=== PATIENT | male | born 2005 | race Caucasian/White ===

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

== ENCOUNTER 2024-07-04 09:01 | Emergency (ER) | payer BC, SELFPAY ==
--- NOTE | ~2024-07-04 | XR_ITS ---
XR chest 2V Ordering provider: Adelso Chapin MD History: 19 years Male with . chest pain . Comparison: None. FINDINGS: MEDIASTINUM: The cardiac silhouette is not enlarged. LUNGS: No infiltrates, effusions or pneumothorax. OTHER: No free air under the diaphragm. IMPRESSION: No Acute cardiopulmonary pathology. Reviewed, dictated and finalized at location A. ENT FINANCIAL COUNSELOR
[2024-07-04 09:01] VITALS: BP 130/76; PULSE 99; RESP 14; TEMP 36.2; O2SAT 99
[2024-07-04 09:06] VITALS: PULSE 98; O2SAT 100
--- NOTE | 2024-07-04 09:06 | ECG_ITS ---
Test Date: 2024-07-04 09:07:58 Measurements Intervals [place] Rate: 94 P: 79 LA: 152 QRS: 75 QRSD: 84 T: 48 QT: 330 QTc: 413 Interpretive Statements SINUS RHYTHM BASELINE ARTIFACT- I, II, AVR NORMAL ECG No previous ECG available for comparison Electronically Signed On 07-04-2024 09:13:44 DIETIST by Red Valera D.O.
[2024-07-04 09:18] LABS: Basophils Percent Auto 0.6 % (0.2-1.2); Eosinophils Absolute Auto 0.1 K/mm3 (0-0.3); Eosinophils Percent Auto 0.9 % (0-4.4); Hematocrit 45.7 % (42.0-52.0); Hemoglobin 16.5 g/dL (14.0-18.0); Immature Granulocyte Absolute 0.01 K/mm3 (0.00-0.031); Immature Granulocyte Percent A 0.2 % (0-0.5); Lymphocytes Absolute Auto 1.58 K/mm3 (0.9-3.2); Lymphocytes Percent Auto 29.8 % (18.3-44.2); Mean Corpuscular HGB Conc 36.1 g/dl (32-36); Mean Corpuscular Hemoglobin 30.8 pg (26-34); Mean Corpuscular Volume 85.4 fl (80-100); Mean Platelet Volume 9.7 fl (7.4-10.4); Monocytes Absolute Auto 0.5 K/mm3 (0.1-0.6); Monocytes Percent Auto 8.5 % (2.6-8.5); Neutrophils Absolute Auto 3.2 K/mm3 (1.3-6.7); Platelet Count Result 228 k/mm3 (150-375); Red Blood Count 5.35 M/mm3 (4.6-6.20); Red Cell Distribution Width 12.2 % (11.5-14.5); White Blood Count 5.3 K/mm3 (4.5-10.0)
[2024-07-04 09:28] LABS: Prothrombin Time 13.6 Seconds (11.1-14.7)
[2024-07-04 09:29] LABS: Alanine Aminotransferase 16 U/L (6-50); Albumin Level 4.8 g/dL (3.5-5.1); Alkaline Phosphatase 85 U/L (38-126); Anion Gap 14 mmol/L (4-12); Aspartate Amino Transferase 28 U/L (17-59); Bilirubin,Total 0.8 mg/dL (0.2-1.3); Blood Urea Nitrogen 12 mg/dL (9-20); Calcium 9.7 mg/dL (8.4-10.2); Carbon Dioxide 20 mmol/L (22-30); Chloride 108 mmol/L (98-107); Estimated CRCL calculation 119 ml/min; Estimated Glomerular Filt Rate > 60; Glucose 135 mg/dL (65-110); Lipase 379 U/L (23-300); Partial Thromboplastin Time 26.5 Seconds (22.3-36.8); Potassium 3.4 mmol/L (3.4-5.0); Sodium 142 mmol/L (137-145)
[2024-07-04 09:31] VITALS: BP 130/82; PULSE 89; RESP 16; O2SAT 96
[2024-07-04 09:39] LABS: Troponin I < 0.012 ng/mL (0.000-0.034)
--- NOTE | 2024-07-04 10:33 | ED.GENADULT ---
HPI - General Adult General Chief complaint: Chest Pain Stated complaint: chest pain Time Seen by Provider: 07/04/24 09:08 History of Present Illness HPI narrative: 19-year-old male with history of anxiety and bipolar presenting to the emergency department for evaluation after having it episode of increased heart rate and hyperventilation. This has happened previously but he has never had a syncopal episode from this. Patient reports he did have a syncopal episode today. Upon arrival to the emergency department patient states that his symptoms are resolved. Patient is not anxious appearing, patient has normal heart rate normal respirations and is saturating well on room air. Patient's family was present during the vision. Related Data Allergies Allergy/AdvReac Type Severity Reaction Status Date / Time ibuprofen AdvReac Other Verified 07/04/24 09:07 Review of Systems Review of Systems: All systems reviewed & are unremarkable except as noted in HPI and below Exam Narrative: APPEARANCE: Well appearing, no pain, no distress, well-nourished. HEAD: normocephalic, atraumatic. EYES: PERRLA/EOMI, conjunctivae clear. NOSE: Normal no drainage EARS:TMS clear with good light reflex. THROAT: Pharynx clear, no exudate. NECK: Supple. No adenopathy, no masses. RESPIRATORY: Airway patent, respirations nonlabored. Clear to auscultation bilaterally, no rales, rhonchi, wheezing. CARDIOVASCULAR: Regular rate and rhythm without murmurs rubs or gallops. ABDOMINAL: Soft, nontender, nondistended, normal bowel sounds MUSCULOSKELETAL: Moves all extremities. Strength/ROM intact, No edema, No calf tenderness. NEURO: Alert. Cranial nerves II through XII intact. Grossly intact SKIN: Warm, dry. Normal Color Course Vital Signs Vital signs: Vital Signs Temperature 97.2 F L 07/04/24 09:01 Pulse Rate 99 07/04/24 09:01 Respiratory Rate 14 07/04/24 09:01 Blood Pressure 130/76 07/04/24 09:01 Pulse Oximetry 99 07/04/24 09:01 Oxygen Delivery Room Air 07/04/24 09:01 Temperature 97.2 F L 07/04/24 09:01 Pulse Rate 78 07/04/24 11:17 Respiratory Rate 19 07/04/24 11:17 Blood Pressure 117/70 07/04/24 10:45 Pulse Oximetry 97 07/04/24 11:17 Oxygen Delivery Room Air 07/04/24 09:06 Medical Decision Making MDM Narrative Medical decision making narrative: 19-year-old male presents to the emergency department for evaluation for a syncopal episode after having an episode of hyperventilation. Patient is resting comfortably and is in no distress. Patient is afebrile with no leukocytosis and hemoglobin of 16.5 with no acute abnormalities. Patient's troponin was negative. Patient had mild elevation in his lipase with no tenderness to palpation, chest x-ray shows no acute cardiopulmonary abnormality. Patient family updated the results of the workup they are comfortable plan for discharge and close follow-up. All questions concerns were addressed. Differential Diagnosis Differential Diagnosis: Syncope, near syncope, ACS, anxiety, hyperventilation Vital Signs Vital Signs: Vital Signs Temperature 97.2 F L 07/04/24 09:01 Pulse Rate 99 07/04/24 09:01 Respiratory Rate 14 07/04/24 09:01 Blood Pressure 130/76 07/04/24 09:01 Pulse Oximetry 99 07/04/24 09:01 Oxygen Delivery Room Air 07/04/24 09:01 Temperature 97.2 F L 07/04/24 09:01 Pulse Rate 78 07/04/24 11:17 Respiratory Rate 19 07/04/24 11:17 Blood Pressure 117/70 07/04/24 10:45 Pulse Oximetry 97 07/04/24 11:17 Oxygen Delivery Room Air 07/04/24 09:06 Lab Data Lab results reviewed: Yes I reviewed the patient's lab results. 07/04/24 09:10 07/04/24 09:10 Labs: Lab Results 07/04/24 Range/Units 09:10 WBC 5.3 (4.5-10.0) K/mm3 RBC 5.35 (4.6-6.20) M/mm3 Hgb 16.5 (14.0-18.0) g/dL Hct 45.7 (42.0-52.0) % MCV 85.4 (80-100) fl MCH 30.8 (26-34) pg MCHC 36.1 H (32-36) g/dl RDW 12.2 (11.5-14.5) % Plt Count 228 (150-375) k/mm3 MPV 9.7 (7.4-10.4) fl Immature Gran % (Auto) 0.2 (0-0.5) % Neut % (Auto) 60.0 (45.5-73.1) % Lymph % (Auto) 29.8 (18.3-44.2) % Henry % (Auto) 8.5 (2.6-8.5) % Eos % (Auto) 0.9 (0-4.4) % Baso % (Auto) 0.6 (0.2-1.2) % Lymph # (Auto) 1.58 (0.9-3.2) K/mm3 Henry # (Auto) 0.5 (0.1-0.6) K/mm3 Eos # (Auto) 0.1 (0-0.3) K/mm3 Baso # (Auto) 0.0 (0.0-0.1) K/mm3 Abs Immat Gran (auto) 0.01 (0.00-0.031) K/mm3 Absolute Neuts (auto) 3.2 (1.3-6.7) K/mm3 Absolute Nucleated RBC 0.000 (0.0-0.012) K/mm3 Nucleated RBC % 0.0 (0.0-0.2) % PT 13.6 (11.1-14.7) Seconds INR 1.0 APTT 26.5 (22.3-36.8) Seconds Sodium 142 (137-145) mmol/L Potassium 3.4 (3.4-5.0) mmol/L Chloride 108 H (98-107) mmol/L Carbon Dioxide 20 L (22-30) mmol/L Anion Gap 14 H (4-12) mmol/L BUN 12 (9-20) mg/dL Creatinine 0.90 (0.7-1.3) mg/dL Estim Creat Clear Calc 119 ml/min Estimated GFR > 60 (59 - ) Glucose 135 H (65-110) mg/dL Calcium 9.7 (8.4-10.2) mg/dL Total Bilirubin 0.8 (0.2-1.3) mg/dL AST 28 (17-59) U/L ALT 16 (6-50) U/L Alkaline Phosphatase 85 (38-126) U/L Troponin I < 0.012 (0.000-0.034) ng/mL Total Protein 7.0 (6.3-8.2) g/dL Albumin 4.8 (3.5-5.1) g/dL Lipase 379 H (23-300) U/L Imaging Data Radiologist's impression: Impressions Chest X-Ray 07/04/24 09:54 IMPRESSION: No Acute cardiopulmonary pathology. Discharge Plan Discharge Clinical Impression: Hyperventilation Patient Disposition: Home, Self-Care Condition: Stable Instructions: Antibiotic Form, Hyperventilation (ED), Syncope (ED) Additional Instructions: Have close follow-up with your primary care physician. If you have any worsening symptoms then please call or return to the emergency department. Follow-up/Referrals: UNKNOWN,DOCTOR [Primary Care Provider] -
[2024-07-04 10:45] VITALS: BP 117/70; PULSE 84; RESP 18; O2SAT 98
[2024-07-04 11:17] VITALS: PULSE 78; RESP 19; O2SAT 97
== END 2024-07-04 11:30 | disposition home or self-care (01) ==
PROVIDERS: Emergency Provider Emergency Medicine
DX: R06.4 Hyperventilation (principal)
CPT/HCPCS: 36415; 71046; 80053; 83690; 84484; 85025; 85610; 85730; 93005; 99284